=== PATIENT | male | born 1995 | race Caucasian/White ===

== ENCOUNTER 2018-07-15 09:36 | Emergency (ER) | payer BC ==
--- NOTE | 2018-07-15 10:35 | ER Document Report ---
ED Medical Screen (RME) - General Chief Complaint: Nausea/Vomiting/Diarrhea Stated Complaint: VOMITING/URINARY ISSUE Time Seen by Provider: 07/15/18 10:33 Primary Care Provider: SILVIA SHAIKH MD [Primary Care Provider] - Follow up as needed Mode of Arrival: Ambulatory Information source: Patient Notes: 22-year-old male presented to ED for complaint of upper abdominal pain nausea and vomiting times since Sunday. He states he is vomited at least 10 times since midnight had 2 diarrheal stools. He denies any fevers. He states he has been to the emergency room twice so far this year for the similar incidents. He states he is not sure what is going on. States the pain is little better right now but his urine is dark yellow. Patient is alert oriented respirations regular and unlabored speaking in full sentences. He does have some upper abdominal pain but not severe at this time. Abdomen is soft nontender except in the upper mid abdomen. I have greeted and performed a rapid initial assessment of this patient. A comprehensive ED assessment and evaluation of the patient, analysis of test results and completion of medical decision making process will be conducted by an additional ED providers. Dictation of this chart was performed using voice recognition software; therefore, there may be some unintended grammatical errors. TRAVEL OUTSIDE OF THE [place] IN LAST 30 DAYS: No - Related Data Allergies/Adverse Reactions: No Known Allergies Allergy (Unverified 07/15/18 09:38) Physical Exam - Vital signs Vitals: Temp Pulse Resp BP Pulse Ox 99.6 F 66 16 142/84 H 98 07/15/18 09:47 07/15/18 09:47 07/15/18 09:47 07/15/18 09:47 07/15/18 09:47 Course - Vital Signs Vital signs: Temp Pulse Resp BP Pulse Ox 99.6 F 66 16 142/84 H 98 07/15/18 09:47 07/15/18 09:47 07/15/18 09:47 07/15/18 09:47 07/15/18 09:47 Doctor's Discharge - Discharge Referrals: SILVIA SHAIKH MD [Primary Care Provider] - Follow up as needed
[2018-07-15] MEDS ORDERED: ONDANSETRON 4 MG TAB.RAPDIS PO ONE (10:36)
[2018-07-15 11:03] LABS: ABSOLUTE LYMPHOCYTES (AUTO) 1.2 10^3/uL (0.5-4.7); ABSOLUTE NEUT (AUTO) 11.8 10^3/uL (1.7-8.2); BASOPHILS % (AUTO) 0.2 % (0-2); HEMATOCRIT 52.7 % (37.9-51.0); HEMOGLOBIN 17.7 g/dL (13.5-17.0); LYMPHOCYTES % (AUTO) 8.3 % (13-45); MEAN CORPUSCULAR HEMOGLOBIN 30.1 pg (27.0-33.4); MEAN CORPUSCULAR HGB CONC 33.6 g/dL (32.0-36.0); MEAN CORPUSCULAR VOLUME 89 fl (80-97); MONOCYTES % (AUTO) 7.1 % (3-13); PLATELET COUNT 252 10^3/uL (150-450); RED CELL DISTRIBUTION WIDTH 13.7 % (11.5-14.0); SEGMENTED NEUTROPHILS % (AUTO) 84.4 % (42-78); TOTAL CELLS COUNTED % (AUTO) 100 %
[2018-07-15 11:06] LABS: APPEARANCE,URINE CLEAR; BILIRUBIN,URINE NEGATIVE (NEGATIVE); COLOR,URINE DARK YELLOW; GLUCOSE, URINE NEGATIVE (NEGATIVE); KETONES,URINE 80 mg/dL (NEGATIVE); LEUKOCYTE ESTERASE,URINE NEGATIVE (NEGATIVE); NITRITE,URINE NEGATIVE (NEGATIVE); PROTEIN,URINE 100 mg/dL (NEGATIVE); URINE SPECIFIC GRAVITY 1.033
[2018-07-15 11:25] LABS: ALANINE AMINOTRANSFERASE 36 U/L (21-72); ALBUMIN 5.3 g/dL (3.5-5.0); ALKALINE PHOSPHATASE 61 U/L (38-126); ANION GAP 16 (5-19); ASPARTATE AMINO TRANSFERASE 24 U/L (17-59); BILIRUBIN,DIRECT 0.5 mg/dL (0.0-0.4); BILIRUBIN,TOTAL 2.2 mg/dL (0.2-1.3); BLOOD UREA NITROGEN 15 mg/dL (7-20); CALCIUM 10.2 mg/dL (8.4-10.2); CARBON DIOXIDE 30 mmol/L (22-30); CHLORIDE 100 mmol/L (98-107); GLUCOSE 103 mg/dL (75-110); LIPASE 24.4 U/L (23-300); SODIUM 145.5 mmol/L (137-145); TOTAL PROTEIN 8.9 g/dL (6.3-8.2)
--- NOTE | 2018-07-15 12:03 | RADIOLOGY REPORT (SQ) ---
EXAM DESCRIPTION: U/S ABDOMEN LIMITED W/O DOP COMPLETED DATE/TIME: 07/15/2018 11:49 am REASON FOR STUDY: upper abd pain knvd COMPARISON: None. TECHNIQUE: Dynamic and static grayscale images acquired of the abdomen and recorded on PACS. Sammieo lyn selected color Doppler and spectral images recorded. LIMITATIONS: None. FINDINGS: PANCREAS: No mass. The tail of the pancreas was not well seen. LIVER: No masses. Echotexture normal. LIVER VASCULATURE: Normal directional flow of the main portal vein and hepatic veins. GALLBLADDER: No stones. Normal wall thickness. No pericholecystic fluid. ULTRASOUND-DETECTED REAL'S SIGN: Negative. INTRAHEPATIC DUCTS AND COMMON DUCT: CBD and intrahepatic ducts normal caliber. No filling defects. INFERIOR VENA CAVA: Normal flow. AORTA: No aneurysm. RIGHT KIDNEY: Normal size, 10.4 cmc. Normal echogenicity. No solid or suspicious masses. No hydronep hrosis. No calcifications. PERITONEAL AND RIGHT PLEURAL SPACE: No ascites or effusions. OTHER: No other significant findings. IMPRESSION: NORMAL RIGHT UPPER QUADRANT ULTRASOUND. TECHNICAL DOCUMENTATION: JOB ID: [id number] [employer]- All Rights Reserved Reading location - IP/workstation name: [email or web address]
--- NOTE | 2018-07-15 12:04 | ER Document Report ---
ED General - General Chief Complaint: Nausea/Vomiting/Diarrhea Stated Complaint: VOMITING/URINARY ISSUE Time Seen by Provider: 07/15/18 10:33 Primary Care Provider: MARCELINA VILLASENOR MD [ACTIVE STAFF] - Follow up in 3-5 days SILVIA SHAIKH MD [EMERITUS] - Follow up in 3-5 days Mode of Arrival: Ambulatory Notes: Patient is a 22-year-old male that presents to the emergency department for chief complaint of nausea, vomiting and diarrhea. Patient states that over the weekend he has been drinking alcohol, as he just graduated from college, and is been having episodes of nausea and vomiting that started yesterday, and progressed through today as well as a few episodes of diarrhea. He denies n oting any blood in the vomit or the stool. He did go to an urgent care and they did a urinalysis, that showed urobilinogen and they advised him to come to the emergency department to be evaluated for this. He states he has not been able to eat or drink much over the past few days as a result. He has some lower abdominal cramping associated with the symptoms, denies any upper pain. Denies any dysuria, hematuria fevers, chills or night sweats. At this time he currently rates his pain as a 1 out of 10. Past Medical History: Denies chronic medical conditions Past Surgical History: Denies surgical history Social History: Admits to intermittent alcohol use, denies tobacco or illicit drug use. Family History: Reviewed and noncontributory for presenting illness Allergies: Reviewed, see documented allergy list. REVIEW OF SYSTEMS: Other than noted above, the 12 point review of systems was reviewed with the patient and were negative, all pertinent findings are included in the HPI. PHYSICAL EXAMINATION: Vital signs reviewed, nursing noted reviewed. GENERAL: Well-appearing, well-nourished and in no acute distress. HEAD: Atraumatic, normocephalic. EYES: Eyes appear normal, extraocular movements intact, sclera anicteric, conjunctiva are normal. ENT: nares patent, oropharynx clear without exudates. Moist mucous membranes. NECK: Normal range of motion, supple without lymphadenopathy LUNGS: Breath sounds clear to auscultation bilaterally and equal. No wheezes rales or rhonchi. HEART: Regular rate and rhythm without murmurs ABDOMEN: Soft, mild right-sided abdominal discomfort with palpation, normoactive bowel sounds. No rebound, guarding, or rigidity. No masses appreciated. EXTREMITIES: Nontender, good range of motion, no pitting or edema. NEUROLOGICAL: No focal neurological deficits. Moves all extremities spontaneously Motor and sensory grossly intact on exam. PSYCH: Normal mood, normal affect. SKIN: Warm, Dry, normal turgor, no rashes or lesions noted on exposed skin TRAVEL OUTSIDE OF THE [place] IN LAST 30 DAYS: No - Related Data Allergies/Adverse Reactions: No Known Allergies Allergy (Unverified 07/15/18 09:38) Past Medical History - General Information source: Patient - Social History Smoking Status: Never Smoker Chew tobacco use (# tins/day): No Frequency of alcohol use: Social Drug Abuse: None Family History: Reviewed & Not Pertinent Patient has suicidal ideation: No Patient has homicidal ideation: No Renal/ Medical History: Denies: Hx Peritoneal Dialysis Physical Exam - Vital signs Vitals: Temp Pulse Resp BP Pulse Ox 99.6 F 66 16 142/84 H 98 07/15/18 09:47 07/15/18 09:47 07/15/18 09:47 07/15/18 09:47 07/15/18 09:47 Course - Re-evaluation Re-evalutation: Patient seen and examined vital signs reviewed. Laboratory data and/or imaging were ordered as appropriate for the patient's presenting symptoms and complaint, with consideration of any critical or life threatening conditions that may be associated with their obtained history and exam as noted above. Patient was treated with p.o. Zofran Results were reviewed when available and demonstrated mild leukocytosis, he also had a mild elevation in bilirubin, and had hemoconcentration, all consistent with dehydration, and the patient's recent vomiting, he had a right upper quadrant ultrasound, that was completely normal, normal size of the bile ducts. The patient was re-evaluated and was stable, he was still complaining of some nausea and therefore was given p.o. Phenergan, which did seem to help. Evaluation was most consistent with nausea, vomiting diarrhea, mild hyperbilirubinemia, hemoconcentration and dehydration. Patient appeared well enough that I felt that he could tolerate p.o. hydration, at home, he did not require an IV at this time he is otherwise healthy male. Patient was agreeable and discharged home. He was also advised follow-up with gastroenterology. Results were discussed with the patient at this point, after careful consideration I feel that that patient can be discharged from the emergency department, the patient was educated treatments and reasons to return to the emergency department based on their presumed diagnosis as noted above, they were advised to followup with a primary care physician in 2-3 days. Patient was agre eable to plan of care. *Note is created using voice recognition software and may contain spelling, syntax or grammatical errors. Laboratory 07/15/18 07/15/18 07/15/18 10:45 10:45 10:45 WBC 14.0 H RBC 5.90 H Hgb 17.7 H Hct 52.7 H MCV 89 MCH 30.1 MCHC 33.6 RDW 13.7 Plt Count 252 Seg Neutrophils % 84.4 H Lymphocytes % 8.3 L Monocytes % 7.1 Eosinophils % 0.0 Basophils % 0.2 Absolute Neutrophils 11.8 H Absolute Lymphocytes 1.2 Absolute Monocytes 1.0 Absolute Eosinophils 0.0 Absolute Basophils 0.0 Sodium 145.5 H Potassium 4.0 Chloride 100 Carbon Dioxide 30 Anion Gap 16 BUN 15 Creatinine 1.08 Est GFR ( Amer) > 60 Est GFR (Non-Af Amer) > 60 Glucose 103 Calcium 10.2 Total Bilirubin 2.2 H Direct Bilirubin 0.5 H Neonat Total Bilirubin Not Reportable Neonat Direct Bilirubin Not Reportable Neonat Indirect Bili Not Reportable AST 24 ALT 36 Alkaline Phosphatase 61 Total Protein 8.9 H Albumin 5.3 H Lipase 24.4 Urine Color DARK YELLOW Urine Appearance CLEAR Urine pH 6.0 Ur Specific [place] 1.033 Urine Protein 100 H Urine Glucose (UA) NEGATIVE Urine Ketones 80 H Urine Blood NEGATIVE Urine Nitrite NEGATIVE Urine Bilirubin NEGATIVE Urine Urobilinogen 2.0 H Ur Leukocyte Esterase NEGATIVE Urine WBC (Auto) 0 Urine RBC (Auto) 1 Squamous Epi Cells Auto <1 Urine Mucus (Auto) MOD Urine Ascorbic Acid NEGATIVE Abdomen Ultrasound 07/15/18 10:35 IMPRESSION: NORMAL RIGHT UPPER QUADRANT ULTRASOUND. - Vital Signs Vital signs: Temp Pulse Resp BP Pulse Ox 98.2 F 63 16 139/74 H 95 07/15/18 13:18 07/15/18 13:18 07/15/18 13:18 07/15/18 13:18 07/15/18 13:18 - Laboratory Result Diagrams: 07/15/18 10:45 05/13/19 10:45 Laboratory results interpreted by me: 07/15/18 07/15/18 07/15/18 10:45 10:45 10:45 WBC 14.0 H RBC 5.90 H Hgb 17.7 H Hct 52.7 H Seg Neutrophils % 84.4 H Lymphocytes % 8.3 L Absolute Neutrophils 11.8 H Sodium 145.5 H Total Bilirubin 2.2 H Direct Bilirubin 0.5 H Total Protein 8.9 H Albumin 5.3 H Urine Protein 100 H Urine Ketones 80 H Urine Urobilinogen 2.0 H Discharge - Discharge Clinical Impression: Nausea vomiting and diarrhea, Hyperbilirubinemia, Dehydration Condition: Stable Disposition: HOME, SELF-CARE Instructions: Vomiting ([facility]) Additional Instructions: Please take the prescribed medication as directed, please follow-up with gastroenterology if you have persistent symptoms, if you are not able to keep liquids down to maintain your hydration, please follow-up return to the emergency department. Prescriptions: Ondansetron [Zofran Odt 4 mg Tablet] 1 tab PO Q8H PRN #15 tab.rapdis PRN Reason: For Nausea/Vomiting Referrals: SILIVA SHAIKH MD [EMERITUS] - Follow up in 3-5 days MARCELINA VILLASENOR MD [ACTIVE STAFF] - Follow up in 3-5 days
[2018-07-15] MEDS ORDERED: PROMETHAZINE HCL 25 MG TABLET PO ONE (13:09)
[2018-07-15 13:19] VITALS: BP 139/74
== END 2018-07-15 13:23 | disposition home or self-care (01) ==
LOC: ER 09:36
DX: R11.2 Nausea with vomiting, unspecified (principal); R19.7 Diarrhea, unspecified; R10.30 Lower abdominal pain, unspecified; E86.0 Dehydration; D72.829 Elevated white blood cell count, unspecified; E80.6 Other disorders of bilirubin metabolism
CPT/HCPCS: 99284; 36415; 83690; 85025; 80053; 81001; 76705; S0119